=== PATIENT | male | born 1955 | race African-American/Black ===

== ENCOUNTER 2020-12-12 14:17 | Emergency (ER) | payer MEDICARE ==
[2020-12-12 14:33] VITALS: BP 138/93
--- NOTE | 2020-12-12 14:39 | Emergency Department Report ---
ED General Adult HPI - General Chief complaint: Medical Clearance Stated complaint: I have a left retinal detachment PUI?: No Time Seen by Provider: 12/12/20 14:37 Source: patient, RN notes reviewed Mode of arrival: Ambulatory Limitations: No Limitations - History of Present Illness Initial comments: The patient was evaluated in the emergency department for symptoms described in the history of present illness. He/she was evaluated in the context of the global COVID-19 pandemic, which necessitated consideration that the patient might be at risk for infection with the virus that causes COVID-19. Institutional protocols and algorithms that pertain to the evaluation of patients at risk for COVID-19 are in a state of rapid change based on information released by regulatory bodies including the CDC and federal and state organizations. These policies and algorithms were followed during the patient's care in the emergency department. Please note that these policies, procedures and recommendations changed on a rapid basis. Mr. Mendoza is a pleasant 65-year-old gentleman with a reported history of hypertension, who is referred to the emergency room by a local retina specialist, as he was recently diagnosed with a nontraumatic left-sided retinal detachment, at the following outpatient silver chaser: [facility] in [place], [place] COVID-19 info: [employer] Address: [address] [place] [address], [place] [address] Patient states he has been having some floaters in his left peripheral vision over the past week, and then this past Saturday, 2 days ago, he developed essentially complete painless loss of vision in his left eye, with the exception of the superior and lateral quadrants of his left upper visual field. He reports that he went to the aforementioned silver chaser, and had a dilated ophthalmic examination, which confirmed a retinal detachment. I contacted the aforementioned silver chaser, and discussed the patient's case with Dr. Connors, who confirmed that the patient does indeed have a retinal detachment. The patient was referred to a local retina specialist for urgent evaluation. Upon arriving at the retina specialist's office, the patient, who is currently visiting from [place], was told that the retina specialist office were having difficulty with his insurance. The patient also tells me that he was counseled to come to the emergency room, because of coming from the emergency room, the retina specialist "might be able to do something with my insurance." The patient denies all physical pain. The patient denies loss of taste and smell. The patient denies additional complaints. His only complaint is painless loss of vision in his left eye. -: days(s) Location: eyes Consistency: constant Improves with: none Worsens with: none Associated Symptoms: denies other symptoms - Related Data Allergies Allergy/AdvReac Type Severity Reaction Status Date / Time No Known Allergies Allergy Unverified 12/12/20 14:29 ED Review of Systems ROS: Stated complaint: EYE PROBLEM Other details as noted in HPI Comment: All other systems reviewed and negative Eyes: vision change, other (Patient endorses floaters, now resolved, loss of vision in the left eye, but he is able to see light and shapes in the left superior lateral quadrant.). denies: eye pain, eye discharge ED Past Medical Hx - Past Medical History Previous Medical History?: No - Surgical History Past Surgical History?: No - Social History Smoking Status: Current Every Day Smoker Substance Use Type: Alcohol ED Physical Exam - General Limitations: No Limitations General appearance: alert, anxious, obese - Head Head exam: Present: atraumatic, normocephalic - Eye Eye exam: Present: normal appearance (Visual acuity in the right intact to reading, finger counting, and color perception at a close distance.), EOMI, other (Patient status post dilated pupillary examination from the silver chaser office.). Absent: nystagmus - ENT ENT exam: Present: normal exam, normal orophraynx, mucous membranes moist, normal external ear exam - Neck Neck exam: Present: normal inspection, full ROM. Absent: tenderness, meningismus - Respiratory Respiratory exam: Present: normal lung sounds bilaterally. Absent: respiratory distress, wheezes, rales, rhonchi, stridor, decreased breath sounds - Cardiovascular Cardiovascular Exam: Present: regular rate, normal rhythm, normal heart sounds. Absent: bradycardia, tachycardia, irregular rhythm, systolic murmur, diastolic murmur, rubs, gallop - GI/Abdominal GI/Abdominal exam: Present: soft. Absent: distended, tenderness, guarding, rebound, rigid, pulsatile mass - Rectal Rectal exam: Present: deferred - Extremities Exam Extremities exam: Present: normal inspection, full ROM, other (2+ pulses noted in the bilateral upper and lower extremities. There is no palpable cord. negative Homans sign. Muscular compartments are soft. The pelvis is stable.). Absent: pedal edema, calf tenderness - Back Exam Back exam: Present: normal inspection, full ROM. Absent: tenderness, CVA tenderness (R), CVA tenderness (L), paraspinal tenderness, vertebral tenderness - Neurological Exam Neurological exam: Present: alert, oriented X3, normal gait, other (There is no facial droop. The tongue is midline. Extraocular movements are intact bilaterally. There is 5 out of 5 strength in bilateral upper and lower extremities. Sensation is intact to light touch bilateral upper and lower extremities. There is no past-pointing. There is no pronator drift.). Absent: motor sensory deficit - Psychiatric Psychiatric exam: Present: normal affect, normal mood - Skin Skin exam: Present: warm, dry, intact, normal color. Absent: rash ED Course Vital Signs 12/12/20 14:29 Temperature 97.9 F Pulse Rate 80 Respiratory 20 Rate Blood Pressure 138/93 O2 Sat by Pulse 98 Oximetry ED Medical Decision Making - Lab Data Vital Signs 12/12/20 14:29 Temperature 97.9 F Pulse Rate 80 Respiratory 20 Rate Blood Pressure 138/93 O2 Sat by Pulse 98 Oximetry - Medical Decision Making Differential diagnosis, including but not limited to: General medical examination, retinal detachment Assessment and plan: 65-year-old gentleman who is status post outpatient silver chaser appointment today, with a dilated examination, who had outpatient confirmed nontraumatic left-sided retinal detachment. He has no additional injuries or complaints. He was referred to a local retina specialist. For unclear reasons, he ended up coming to the emergency room, because he was counseled that if coming to the emergency room, the retinal specialist might be able to make special accommodations for this patient's care. I have counseled patient that he does indeed need to follow-up with an outpatient sight effects specialist or retinal specialist. However, I advised that this does not require emergent consultation, but rather urgent outpatient follow-up. I did advise the patient that I would be very happy to speak to a consulting sight effects specialist at [facility], or [facility], to arrange close outpatient follow-up, but the patient declined this, and stated that he would "follow-up with the specialist that they gave me." The patient then eloped from the emergency room, before I was able to get him his discharge paperwork. I did call the patient at the phone number that he listed, nobody answered, so I left a voicemail for call back. However, during my initial evaluation, the patient presented as alert, oriented, clinically sober, exhibiting decision-making capacity, and free from distracting injury. He does not appear to have an emergent medical condition at this time, and he did endorse that he was very closely going to follow-up with the outpatient retinal specialist. Critical care attestation.: If time is entered above; I have spent that time in minutes in the direct care of this critically ill patient, excluding procedure time. ED Disposition Clinical Impression: History of retinal detachment Disposition: ELOPED Is pt being admited?: No Does the pt Need Aspirin: No Condition: Undetermined Instructions: Retinal Detachment Additional Instructions: Do not take Motrin, ibuprofen, Naprosyn, Aleve, aspirin, Goody powder, or consume alcohol, or smoke products. Please follow-up as soon as possible with an outpatient sight effects specialist, or retinal specialist. Please return to the emergency room right away with new, worsened or different symptoms not present on the initial emergency room evaluation. Referrals: SOULEYMANE NJ MD [Staff Physician] - [facility]
== END 2020-12-12 16:12 | disposition left against medical advice (07) ==
LOC: ED 14:17
DX: H33.20 Serous retinal detachment, unspecified eye (principal); F17.200 Nicotine dependence, unspecified, uncomplicated
CPT/HCPCS: 99282